=== PATIENT | female | born 1980 | race African-American/Black ===

== ENCOUNTER 2021-11-06 08:19 | Emergency (ER) | payer SELFPAY ==
[~2021-11-06] VITALS: Ht 167.6 cm; Wt 70.0 kg
[2021-11-06 08:58] VITALS: BP 109/82
--- NOTE | 2021-11-06 09:36 | RAD ---
XR EXAM OF ANKLE_RIGHT 3VIEWS History: Right ankle injury. Comparison: None. Findings: Osseous mineralization is normal. No acute fracture or dislocaton. The ankle mortise and talar dome a re intact. There is mild irregularity at the medial and lateral malleolar tips which is favored to re present sequela of old injury. Diffuse soft tissue swelling of the right ankle. Impression: 1. Soft tissue swelling of the right ankle without acute osseous abnormality. Electronically signed by: Sergei Mathis MD (11/06/2021 9:33 AM) [id number]
--- NOTE | 2021-11-06 09:37 | RAD ---
Exam Date: 11/06/2021 9:06 AM XR KNEE 3 VIEWS_RT Indication: Pain. Reason: RIGHT KNEE INJURY, PAIN ON LATERAL SIDE / Spl. Instructions: / History: . FINDINGS/ IMPRESSION: No acute fracture or dislocation. Alignment and joint spaces are maintained. The soft tissues are w ithin normal limits. Electronically signed by: Hamilton Celis MD (11/06/2021 9:35 AM) [id number]
--- NOTE | 2021-11-06 09:58 | PHYS DOC ---
Past Medical History Past Medical History: No Pertinent History Additional Past Medical Histor: NO HX PER PT Past Surgical History: No Surgical History Additional Past Surgical Histo: LEFT HAND Smoking Status: Never Smoker Alcohol Use: None Drug Use: None General Adult EDM: Chief Complaint: ANKLE PROBLEM HPI: HPI: Patient is a 41 year old female who present to ER for evaluation of right ankle pain after she missed a step yesterday, she states that her right ankle. Patient also complained of pain in her right knee area. Patient denies any other injury. Patient is complaint of pain whenever she walks. Patient denies any abdominal pain, no nausea vomiting, no headache, no neck pain. Review of Systems: Review of Systems: Constitutional: Denies fever or chills. [] Eyes: Denies change in visual acuity. [] HENT: Denies nasal congestion or sore throat. [] Respiratory: Denies cough or shortness of breath. [] Cardiovascular: Denies chest pain or edema. [] GI: Denies abdominal pain, nausea, vomiting, bloody stools or diarrhea. [] : Denies dysuria. [] Musculoskeletal: Denies back pain, positive for right ankle swollen pain, positive for right knee pain. Integument: Denies rash. [] Neurologic: Denies headache, focal weakness or sensory changes. [] Endocrine: Denies polyuria or polydipsia. [] Lymphatic: Denies swollen glands. [] Psychiatric: Denies depression or anxiety. [] Heart Score: C/O Chest Pain: N/A Risk Factors: Risk Factors: DM, Current or recent (<one month) smoker, HTN, HLP, family history of CAD, obesity. Risk Scores: Score 0 - 3: 2.5% MACE over next 6 weeks - Discharge Home Score 4 - 6: 20.3% MACE over next 6 weeks - Admit for Clinical Observation Score 7 - 10: 72.7% MACE over next 6 weeks - Early Invasive Strategies Allergies: Allergies: Allergies Coded Allergies Type Severity Reaction Last Updated Verified No Known Drug Allergies 11/06/21 No Physical Exam: PE: Constitutional: Well developed, well nourished, no acute distress, non-toxic appearance. [] HENT: Normocephalic, atraumatic, bilateral external ears normal, oropharynx moist, no oral exudates, nose normal. [] Eyes: PERRLA, EOMI, conjunctiva normal, no discharge. [] Neck: Normal range of motion, no tenderness, supple, no stridor. [] Cardiovascular:Heart rate regular rhythm, no murmur [] Lungs & Thorax: Bilateral breath sounds clear to auscultation [] Abdomen: Bowel sounds normal, soft, no tenderness, no masses, no pulsatile masses. [] Skin: Warm, dry, no erythema, no rash. [] Back: No tenderness, no CVA tenderness. [] Extremities: Right ankle is swollen and tender at the lateral malleolus area, right ankle joint is stable. Right knee is tender to palpation at the proximal fibular area, right knee is joint is stable Neurologic: Alert and oriented X 3, normal motor function, normal sensory function, no focal deficits noted. [] Psychologic: Affect normal, judgement normal, mood normal. [] Current Patient Data: Vital Signs: Vital Signs Date Time Temp Pulse Resp B/P (MAP) Pulse Ox O2 Delivery O2 Flow Rate FiO2 11/06/21 08:58 98.0 84 20 109/82 (91) 100 Room Air 98.0 EKG: EKG: [] Radiology/Procedures: Radiology/Procedures: [][facility] [address] [place], [place] [id number] IMAGING REPORT Signed PATIENT: CAROL MERCHANT RACCOUNT: [id number] : 1980 LOCATION: ER AGE: 41 SEX: F EXAM STATUS: REG ER ORD. PHYSICIAN: ROBB MARTI DO REASON: RIGHT ANKLE INJURY, PAIN AROUND JOINT PROCEDURE: ANKLE RIGHT 3V XR EXAM OF ANKLE_RIGHT 3VIEWS History: Right ankle injury. Comparison: None. Findings: Osseous mineralization is normal. No acute fracture or dislocaton. The ankle mortise and talar dome are intact. There is mild irregularity at the medial and lateral malleolar tips which is favored to represent sequela of old injury. Diffuse soft tissue swelling of the right ankle. Impression: 1. Soft tissue swelling of the right ankle without acute osseous abnormality. Electronically signed by: Sergei Curtis MD (11/06/2021 9:33 AM) [id number] DICTATED and SIGNED BY: SERGEI CURTIS MD DATE: 11/06/2131 [facility] [address] [place], [place] [id number] IMAGING REPORT Signed PATIENT: CAROL MERCHANTCOUNT: [id number] : 1980 LOCATION: ER AGE: 41 SEX: F EXAM STATUS: REG ER ORD. PHYSICIAN: ROBB MARTI DO REASON: RIGHT KNEE INJURY, PAIN ON LATERAL SIDE PROCEDURE: KNEE RIGHT 3V Exam Date: 11/06/2021 9:06 AM XR KNEE 3 VIEWS_RT Indication: Pain. Reason: RIGHT KNEE INJURY, PAIN ON LATERAL SIDE / Spl. Instructions: / History: . FINDINGS/ IMPRESSION: No acute fracture or dislocation. Alignment and joint spaces are maintained. The soft tissues are within normal limits. Electronically signed by: Raymundo Celis MD (11/06/2021 9:35 AM) [id number] DICTATED and SIGNED BY: RAYMUNDO CELIS MD DATE: 11/06/21934 Course & Med Decision Making: Course & Med Decision Making Pertinent Labs and Imaging studies reviewed. (See chart for details) Patient is a 41-year-old female female who present to ER for evaluation of right ankle injury. X-ray her right ankle her right knee did not show any acute problem. Han wrap was applied to her right ankle, patient will be discharged home with Aircast to her right ankle . Patient was advised to take ibuprofen or Tylenol as needed for pain control. Dragon Disclaimer: Dragtami Disclaimer: This electronic medical record was generated, in whole or in part, using a voice recognition dictation system. Departure Departure Impression: Primary Impression: Right ankle sprain Disposition: 01 HOME / SELF CARE / HOMELESS Condition: IMPROVED Referrals: MARLENI CAMARILLO APRN (PCP) Follow up with your medical provider as needed Patient Instructions: Ankle Sprain, Acute, with Phase I Rehab-SportsMed Additional Instructions: Thank you for visiting our Emergency Department. We appreciate you trusting us with your care. If any additional problems come up don't hesitate to return to visit us. Please follow up with your primary care provider so they can plan additional care if needed and know about the problem that you had. If symptoms worsen come back to the Emergency Department. Any concerning symptoms that start such as chest pain, shortness of air, weakness or numbness on one side of the body, running high fevers or any other concerning symptoms return to the ER. ROBB MARTI DO Nov 06, 2021 09:58
== END 2021-11-06 10:10 | disposition home or self-care (01) ==
LOC: ER 08:19
DX: S93.401A Sprain of unspecified ligament of right ankle, initial encounter (principal); M25.561 Pain in right knee; X50.9XXA Other and unspecified overexertion or strenuous movements or postures, initial encounter; Y93.89 Activity, other specified; Y92.89 Other specified places as the place of occurrence of the external cause; Y99.8 Other external cause status
CPT/HCPCS: 29515; 73562; 73610; 99284